=== PATIENT | female | born 1945 | race Caucasian/White ===

== ENCOUNTER → 2016-05-18 | Outpatient (CLI) | payer MEDICARE, OTHER ==
[~2016-05-18] MED LIST: ARIMIDEX1 MG PO; AVAPRO300 M1 PO; CYTOMEL0.05 MG PO; HCTZ 25MG TAB25 MG PO; MOBIC15 MG PO; NORCO 325 MG-51 TAB PO; ONE DAILY1 TA1 PO; TUMS500 MG PO
== END ==
LOC: MC.RAD 09:32
DX: Z12.31 Encounter for screening mammogram for malignant neoplasm of breast (principal); Z85.3 Personal history of malignant neoplasm of breast; Z90.11 Acquired absence of right breast and nipple

== ENCOUNTER → 2016-12-21 | Outpatient (CLI) | payer MEDICARE, OTHER | LOC: COL.RAD 12:55 | DX: G31.9 Degenerative disease of nervous system, unspecified (principal) | CPT/HCPCS: A9585 ==